=== PATIENT | female | born 1960 | race Caucasian/White ===

== ENCOUNTER 2017-07-23 11:47 | Emergency (ER) | payer OTHER ==
[~2017-07-23] VITALS: Ht 170.2 cm; Wt 114.3 kg
[~2017-07-23 11:47] MED LIST: NORPTMEDS CO; TRAM50TA2 PO
[2017-07-23 13:39] VITALS: BP 139/70
[2017-07-23] MEDS ORDERED: KETOROLAC TROMETH 60MG/2ML VIAL IM ONE (13:45)
== END 2017-07-23 14:27 | disposition home or self-care (01) ==
LOC: ER 11:47
DX: S52.001A Unspecified fracture of upper end of right ulna, initial encounter for closed fracture (principal); F17.210 Nicotine dependence, cigarettes, uncomplicated; Z88.6 Allergy status to analgesic agent; X58.XXXA Exposure to other specified factors, initial encounter; Y93.89 Activity, other specified; Y99.8 Other external cause status; Y92.89 Other specified places as the place of occurrence of the external cause
CPT/HCPCS: 72040; 73030; 73080; 96372; 99284; J1885